=== PATIENT | male | born 1940 | race Caucasian/White ===

== ENCOUNTER 2024-08-07 16:08 | Emergency (ER) | payer MEDICARE ==
[2024-08-07] MEDS: Diphtheria,Pertussis(Acell),Tetanus Vaccine 0.5 ML Syringe IM ONE (17:17)
[2024-08-07] MEDS: Lidocaine 1% 5 ML VIAL INJECT ONE (17:17)
== END 2024-08-07 18:20 | disposition home or self-care (01) ==
LOC: MW.ED 16:08
DX: S61.411A Laceration without foreign body of right hand, initial encounter (principal); Z23 Encounter for immunization; Z75.3 Unavailability and inaccessibility of health-care facilities; W26.8XXA Contact with other sharp object(s), not elsewhere classified, initial encounter; Y93.89 Activity, other specified
CPT/HCPCS: 12001; 90471; 90715; 99282; J2003; 12041; 99283